=== PATIENT | female | born 1960 | race Two or more races ===

== ENCOUNTER 2023-05-21 19:22 | Emergency (ER) | payer BC ==
[~2023-05-21] VITALS: Ht 165.1 cm; Wt 53.6 kg
[2023-05-21 19:52] VITALS: BP 131/77; PULSE 89; RESP 14; TEMP 100; O2SAT 95
== END 2023-05-21 21:01 | disposition left against medical advice (07) ==
LOC: ER 19:23
DX: R50.9 Fever, unspecified (principal); Z53.21 Procedure and treatment not carried out due to patient leaving prior to being seen by health care provider